=== PATIENT | male | born 1960 | race Caucasian/White ===

== ENCOUNTER 2018-03-12 02:07 | Emergency (ER) | payer MEDICARE, OTHER ==
[~2018-03-12 02:07] MED LIST changes: -ATOR40TA24 PO; -CARV25TA78 PO; -CLOP75TA PO; -FAMO-67 PO; -FLUO-177 PO; -GABA-549 PO; -HYDR25TA66 PO; -LISI-362 PO; -LOR5/325 PO; -NITR0.4T3 SL; -SPIR25TA80 PO; -TAMS0.4C70 PO; -TRAZ100T31 PO
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
[2018-03-12] MEDS ORDERED: ASPIRIN 81 MG CHEW PO ONE (02:15)
[2018-03-12] MEDS ORDERED: ONDANSETRON 4 MG/2 ML VIAL IVP ONE (02:15)
[2018-03-12] MEDS ORDERED: NITROGLYCERIN OINT 1 GM PKT TP ONE (02:25)
[2018-03-12 02:26] LABS: PLATELET COUNT, AUTOMATED 233 K/uL (150-450)
--- NOTE | 2018-03-12 02:35 | RADIOLOGY IMAGING REPORT ---
FACILITY: [facility] [place] PATIENT NAME: Caesar Ortega : 1960 MR: [id number] V: [id number] EXAM DATE: ORDERING PHYSICIAN: NANDINI ZAMORA TECHNOLOGIST: Location: [facility] Patient: Caesar Ortega : 1960 Visit/Account:[id number] Date of Sevice: 03/12/2018 CHEST SINGLE AP 03/12/2018 02:25 hours. HISTORY: Acute chest pain. History of myocardial infarction. COMPARISON: 07/28/2009 and 12/31/2008. TECHNIQUE: Portable AP view of the chest. FINDINGS: Tubes/lines/hardware: There are external chest leads. Pulmonary/pleura: Lungs are clear. There is no pneumothorax or pleural effusion. Cardiomediastinal: Cardiac and mediastinal silhouettes are within normal limits. Bones/soft tissues: No acute osseous abnormality. The visible abdomen is normal. IMPRESSION: 1. No acute cardiopulmonary process. Report Dictated By: Belen Rivera at 03/12/2018 2:30 AM Report E-Signed By: Belen Rivera at 03/12/2018 2:31 AM WSN:[id number]
[2018-03-12] MEDS ORDERED: GABA-549 PO (02:37)
[2018-03-12] MEDS ORDERED: CARV25TA78 PO (02:37)
[2018-03-12] MEDS ORDERED: TRAZ100T31 PO (02:37)
[2018-03-12] MEDS ORDERED: ATOR40TA24 PO (02:37)
[2018-03-12] MEDS ORDERED: NITR0.4T3 SL (02:37)
[2018-03-12] MEDS ORDERED: FLUO-177 PO (02:37)
[2018-03-12] MEDS ORDERED: TAMS0.4C70 PO (02:37)
[2018-03-12] MEDS ORDERED: LISI-362 PO (02:37)
[2018-03-12] MEDS ORDERED: HYDR25TA66 PO (02:37)
[2018-03-12] MEDS ORDERED: SPIR25TA80 PO (02:37)
[2018-03-12] MEDS ORDERED: CLOP75TA PO (02:37)
[2018-03-12 02:42] LABS: INR 1.02
[2018-03-12] MEDS ORDERED: MORPHINE 4 MG/ML SDV IVP ONE (02:55)
[2018-03-12] MEDS ORDERED: FAMO-67 PO (03:02)
--- NOTE | 2018-03-12 03:44 | EKG ---
FACILITY: [facility] PATIENT NAME: DONALDO DIALLO : [id number] MR: [id number] V: [id number] EXAM DATE: ORDERING PHYSICIAN: NANDINI ZAMORA TECHNOLOGIST: LESTER Test Reason : CP Blood Pressure : / mmHG Vent. Rate : 075 BPM Atrial Rate : 075 BPM P-R Int : 174 ms QRS Dur : 100 ms QT Int : 416 ms P-R-T Axes : 047 067 066 degrees QTc Int : 464 ms Normal sinus rhythm Possible Inferior infarct , age undetermined Abnormal ECG No previous ECGs available Confirmed by GANESH MCCLOUD ([id number]) on 03/12/2018 6:28:06 AM Referred By: Confirmed By:GANESH MCCLOUD
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
[2018-03-12] MEDS ORDERED: MORPHINE 2 MG/ML SYR IVP ONE (04:20)
[2018-03-12] MEDS ORDERED: KETOROLAC 30 MG/ML VIAL IVP ONE (04:20)
--- NOTE | 2018-03-12 04:55 | EKG ---
FACILITY: [facility] PATIENT NAME: DONALDO DIALLO : [id number] MR: [id number] V: [id number] EXAM DATE: ORDERING PHYSICIAN: NANDINI ZAMORA TECHNOLOGIST: LESTER Miguel Reason : REPEAT EKG Blood Pressure : / mmHG Vent. Rate : 069 BPM Atrial Rate : 069 BPM P-R Int : 186 ms QRS Dur : 102 ms QT Int : 422 ms P-R-T Axes : 035 091 056 degrees QTc Int : 452 ms Normal sinus rhythm Rightward axis Inferior infarct (cited on or before 12-MAR-2018) Cannot rule out Anterior infarct , age undetermined Abnormal ECG When compared with ECG of 12-MAR-2018 02:15, No significant change was found Confirmed by GANESH MCCLOUD ([id number]) on 03/12/2018 6:28:17 AM Referred By: Confirmed By:GANESH MCCLOUD
[2018-03-12 05:30] VITALS: BP 111/60
[2018-03-12] MEDS ORDERED: MAG HYD/AL HYD/SIMETH 30ML UDC PO ONE (05:40)
[2018-03-12] MEDS ORDERED: LIDOCAINE 2% VISC SLN 15ML UDC PO ONE (05:40)
[2018-03-12] MEDS ORDERED: ACET/HYDROC 5/325MG TH ER ONLY 2 TAB/BOTTLE PO ONE (05:40)
[2018-03-12] MEDS ORDERED: PANTOPRAZOLE SOD 40 MG IV VIAL IVP ONE (05:40)
[2018-03-12] MEDS ORDERED: LOR5/325 PO (05:45)
[2018-03-28] MEDS ORDERED: GABA-547 PO ×2 (14:28→14:57)
[2018-03-28] MEDS ORDERED: ASPI-757 PO (14:57)
[2018-03-28] MEDS ORDERED: ALB6.7R INH (14:57)
[2018-03-28] MEDS ORDERED: LEVO175T42 PO (14:57)
[2018-03-28] MEDS ORDERED: SPIR50TA30 PO (14:57)
[2018-03-28] MEDS ORDERED: ATOR-1 PO (14:57)
[2018-03-28] MEDS ORDERED: FLUO40CA67 PO (14:57)
[2018-03-28] MEDS ORDERED: AMLO-125 PO (14:57)
[2018-03-28] MEDS ORDERED: FAMO-67 PO (14:57)
[2018-03-29] MEDS ORDERED: GABA-549 PO (09:06)
[2018-03-29] MEDS ORDERED: LEVO175T42 PO (09:06)
[2018-04-03] MEDS ORDERED: CIPR-214 PO (14:56)
== END 2018-03-12 05:55 | disposition home or self-care (01) ==
LOC: ER 02:18
DX: R07.9 Chest pain, unspecified (principal); M79.662 Pain in left lower leg; I25.10 Atherosclerotic heart disease of native coronary artery without angina pectoris; R06.02 Shortness of breath
CPT/HCPCS: 36415; 71045; 73590; 83880; 84484; 85025; 85379; 85610; 85730; 93005; 96374; 96375; 96376; 99284; A9270; C9113; J1885; J2270; J2405; 82040; 82247; 82310; 82374; 82435; 82565; 82947; 84075; 84132; 84155; 84295; 84450; 84460; 84520

== ENCOUNTER → 2018-03-12 | Outpatient (CLI) | payer MEDICARE ==
[~2018-03-12] MED LIST: ALBU8.5H12 IH; AMLO-98 PO; ASPI-715 PO; ATOR40TA24 PO; AZIT1PAC21 PO; BENA40TA52 PO; CARV25TA78 PO; CEP500 PO; CIT20 PO; CLOP75TA PO; FAM20 PO; FAMO-67 PO; FLUO-177 PO; GABA-549 PO; GEMF600T91 PO; HYDR-2970 PO; HYDR25TA66 PO; LEVO150T72 PO; LISI-362 PO; LOR5 PO; LOR5/325 PO; METO-235 PO; METXL50 PO; METXR500 PO; MULT-820 PO; NITR0.4T3 SL; OXY10 PO; PER PO; PRA20 PO; SPIR25TA80 PO; TAMS0.4C70 PO; TRAZ100T31 PO
== END ==
LOC: AMB 01:44
PROVIDERS: ATTEND Nurse Practitioner
DX: R07.9 Chest pain, unspecified (principal); R20.2 Paresthesia of skin
CPT/HCPCS: A0425; A0427

== ENCOUNTER → 2018-03-28 | Outpatient (CLI) | payer OTHER ==
[~2018-03-28] MED LIST changes: +ALB6.7R INH; +AMLO-125 PO; +ASPI-757 PO; +ATOR-1 PO; +ATOR40TA24 PO; +CARV25TA78 PO; +CLOP75TA PO; +FAMO-67 PO; +FLUO-177 PO; +FLUO40CA67 PO; +GABA-547 PO; +GABA-549 PO; +HYDR25TA66 PO; +LEVO175T42 PO; +LISI-362 PO; +LOR5/325 PO; +NITR0.4T3 SL; +SPIR25TA80 PO; +SPIR50TA30 PO; +TAMS0.4C70 PO; +TRAZ100T31 PO
[2018-03-28 16:03] LABS: PLATELET COUNT, AUTOMATED 215 K/uL (150-450)
== END ==
LOC: LAB 15:18
PROVIDERS: ATTEND Internal Medicine
DX: C67.9 Malignant neoplasm of bladder, unspecified (principal); I25.10 Atherosclerotic heart disease of native coronary artery without angina pectoris; I50.9 Heart failure, unspecified; E11.9 Type 2 diabetes mellitus without complications; E78.5 Hyperlipidemia, unspecified; E03.9 Hypothyroidism, unspecified; G47.33 Obstructive sleep apnea (adult) (pediatric); R06.00 Dyspnea, unspecified
CPT/HCPCS: 36415; 82040; 82247; 82310; 82374; 82435; 82465; 82565; 82947; 83036; 83718; 83880; 84075; 84132; 84153; 84155; 84295; 84439; 84443; 84450; 84460; 84478; 84520; 84550; 85025

== ENCOUNTER → 2018-04-03 | Outpatient (CLI) | payer OTHER ==
[~2018-04-03] MED LIST changes: +CIPR-214 PO
== END ==
LOC: LAB 13:07
PROVIDERS: ATTEND Urology
DX: C67.9 Malignant neoplasm of bladder, unspecified (principal)
CPT/HCPCS: 88108

== ENCOUNTER → 2018-04-04 | Outpatient (CLI) | payer OTHER ==
--- NOTE | 2018-04-04 11:09 | RADIOLOGY IMAGING REPORT ---
FACILITY: PATIENT NAME: Caesar Ortega : 1960 MR: [id number] V: [id number] EXAM DATE: ORDERING PHYSICIAN: CONCEPCION LEGER TECHNOLOGIST: [facility] Patient: Caesar Ortega : 1960 Visit/Account:[id number] Date of Sevice: 04/04/2018 Computed tomograpy abdomen and pelvis with IV contrast Indication: Bladder cancer. Comparison: None available. . Technique: Transaxial computed tomography images were obtained through the abdomen and pelvis follo wing the injection of nonionic iodinated intravenous contrast. Reformatted coronal and sagittal image s were also obtained. One of the following dose optimization techniques was utilized in the performance of this exam: Autom ated exposure control; adjustment of the mA and/or kV according to the patient's size; or use of an i terative reconstruction technique. Specific details can be referenced in the facility's radiology C T exam operational policy. Contrast: 90 ml of Isovue-300 IV contrast. Findings: Lower lung abraham: 4 mm nodule right middle lobe image 3 of 170. Liver: Findings most consistent with a cavernous hemangioma within the liver dome measures 2.9 cm in size. Too small to characterize low-attenuation lesion inferiorly in the right hepatic lobe on image 55 measures 5 mm. This is strictly indeterminate. No biliary dilatation within the liver. Biliary: Gallbladder is normal. Pancreas: Normal appearance. Spleen: Normal appearance. Adrenal glands: Mild thickening of the adrenal glands bilaterally which maintain their adreniform sha pe. There is a small benign myelolipoma within the lateral limb of the left adrenal gland. Kidneys / retroperitoneum: There are extrarenal pelves bilaterally. No stones. No evidence of hydro nephrosis. There is nodularity of the renal contours bilaterally which may reflect persistent lobulation. In the lower pole the left kidney, there is a low-attenuation lesion identified which is round in shape. This measures 1.8 x 1.7 cm in size. This measures 37 Hounsfield units and is not a simple cyst. Certainly this could represent hemorrhagic/proteinaceous cyst. Neoplasm cannot be exc luded. Are there any older studies for comparison? Bowel / peritoneum / mesenteries: Numerous sigmoid colon diverticula are seen. No evidence of divert iculitis. There has been prior appendectomy. No small bowel dilatation. Lymph node assessment: No pathologic adenopathy identified. Pelvic structures: No focal bladder abnormalities seen. Bladder is partly distended with urine. No bladder stone. Prostate appears minimally enlarged. Vessels: Scattered atherosclerotic calcifications seen throughout a nonaneurysmal abdominal aorta and branches. Musculoskeletal / Body wall: Multilevel degenerative disc disease is present most pronounced at L5-S1 . There is a fat-containing left inguinal hernia. IMPRESSION: 1. No acute inflammatory process within the abdomen and pelvis. 2. Indeterminant 4 mm nodule in the right middle lobe. Given history of bladder malignancy, continu ed CT follow-up is recommended. 3. 2 indeterminate liver lesions, one of which is most likely a cavernous hemangioma. The other is too small to characterize. Comparison with old studies is recommended to document stability. If ind icated, future liver MRI could be done for further characterization. 4. Indeterminant low-attenuation lesion involving the lower pole of the left kidney. This is not a simple cyst. Comparison with old studies is recommended. If there are none, this could be further c haracterized with MRI or a three-phase CT scan. 5. Colonic diverticulosis. No evidence of diverticulitis. Report Dictated By: Reza Oglesby at 04/04/2018 10:22 AM Report E-Signed By: Reza Oglesby at 04/04/2018 11:05 AM WSN:[id number]
== END ==
LOC: US 07:01
PROVIDERS: ATTEND Internal Medicine
DX: I25.10 Atherosclerotic heart disease of native coronary artery without angina pectoris (principal); I50.9 Heart failure, unspecified; I51.7 Cardiomegaly
CPT/HCPCS: 74177; 93306

== ENCOUNTER → 2018-04-04 | Outpatient (CLI) | payer OTHER ==
[~2018-04-04] MED LIST changes: +IOPAMIDOL 61% 100 ML INFUS BTL 100 ML ONE
== END ==
LOC: CT 00:43
PROVIDERS: ATTEND Urology
DX: R91.1 Solitary pulmonary nodule (principal); K76.89 Other specified diseases of liver; N28.9 Disorder of kidney and ureter, unspecified; K57.30 Diverticulosis of large intestine without perforation or abscess without bleeding
CPT/HCPCS: 74177; Q9967

== ENCOUNTER → 2018-04-09 | Outpatient (CLI) | payer OTHER ==
[~2018-04-09] MED LIST changes: -IOPAMIDOL 61% 100 ML INFUS BTL 100 ML ONE; +LISI20TA29 PO; +PREG50CA48 PO
== END ==
LOC: RESP 01:12
PROVIDERS: ATTEND Internal Medicine
DX: I50.9 Heart failure, unspecified (principal); I25.10 Atherosclerotic heart disease of native coronary artery without angina pectoris; R06.00 Dyspnea, unspecified; G47.33 Obstructive sleep apnea (adult) (pediatric)
CPT/HCPCS: 94060; 94726; 94729

== ENCOUNTER → 2018-04-11 | Outpatient (CLI) | payer OTHER ==
--- NOTE | 2018-04-12 10:18 | EKG ---
FACILITY: [facility] [place] PATIENT NAME: DONALDO DIALLO : [id number] MR: [id number] V: [id number] EXAM DATE: ORDERING PHYSICIAN: ANGELES PAULSON TECHNOLOGIST: CYNDI Test Reason : PRE-OP Blood Pressure : / mmHG Vent. Rate : 064 BPM Atrial Rate : 064 BPM P-R Int : 172 ms QRS Dur : 106 ms QT Int : 428 ms P-R-T Axes : 000 076 058 degrees QTc Int : 441 ms Normal sinus rhythm Normal ECG When compared with ECG of 12-MAR-2018 04:27, Minimal criteria for Anterior infarct are no longer present T wave inversion no longer evident in Anterior leads Confirmed by Ananda Sauceda ([id number]) on 04/12/2018 6:53:23 PM Referred By: REDD Confirmed By:Ananda Maynard
== END ==
LOC: RESP 14:05
PROVIDERS: ATTEND Internal Medicine
DX: Z02.9 Encounter for administrative examinations, unspecified (principal)

== ENCOUNTER 2018-04-15 01:46 | Day surgery (SDC) | payer MEDICARE, OTHER ==
[~2018-04-15] VITALS: Ht 182.9 cm; Wt 111.1 kg
[~2018-04-15 01:46] MED LIST changes: +LIDOCAINE/SOD BICARB 8.4% SYR ID ONE
[2018-04-15] MEDS ORDERED: LIDOCAINE/SOD BICARB 8.4% SYR ID ONE (07:00)
[2018-04-15 07:27] VITALS: BP 142/86
[2018-04-15] MEDS ORDERED: fentaNYL CITR 100 MCG/2 ML AMP ONE ×2 (07:55→09:54)
[2018-04-15] MEDS ORDERED: PROPOFOL EMUL(*) 10MG/ML 20 ML 20 ML ONE (07:56)
[2018-04-15] MEDS ORDERED: LIDOCAINE 2% IV 100 MG/5ML SYR ONE (07:56)
[2018-04-15] MEDS ORDERED: PROPOFOL EMUL(*) 10MG/ML 20 ML 40 ML ONE (08:10)
[2018-04-15] MEDS ORDERED: NORMOSOL R SOLN(*) 1000 ML BAG 1,000 ML IV PRN (08:15)
[2018-04-15] MEDS ORDERED: MIDAZOLAM 2 MG/2 ML VIAL IVP PRN (08:15)
[2018-04-15] MEDS ORDERED: LEVOFLOXACIN/D5W*500 MG/100 ML 100 ML IVPB ONE (08:15)
[2018-04-15] MEDS ORDERED: ONDANSETRON 4 MG/2 ML VIAL ONE (09:40)
[2018-04-15] MEDS ORDERED: BELLADONNA ALK/OPIUM 60MG SUPP PR ONE (10:10)
--- NOTE | 2018-04-15 10:40 | Urology Discharge Summary ---
Discharge Summary Reason for Hosp/Final Diag: (1) Bladder cancer Status: Chronic Departure Weight (Pounds): 245 Weight (Ounces): 12.8 Condition: Improved Discharge Instructions Home Meds Active Scripts Pregabalin (LYRICA) 50 Mg Capsule, 50 MG PO BID, #60 CAPSULE 3 Refills Prov:ANGELES PAULSON MD 04/11/18 Lisinopril (LISINOPRIL) 20 Mg Tablet, 20 MG PO QDAY, #30 TAB 5 Refills Prov:ANGELES PAULSON MD 04/11/18 Gabapentin (GABAPENTIN) 300 Mg Capsule, 300 MG PO TID PRN for pain, #90 CAPSULE 3 Refills Prov:ANGELES PAULSON MD 03/29/18 Levothyroxine Sodium (LEVOTHYROXINE SODIUM) 175 Mcg Tablet, 175 MCG PO QDAY, #30 TAB 3 Refills Prov:ANGELES PAULSON MD 03/29/18 Reported Medications Hydrocodone Bit/Acetaminophen (HYDROCODON-ACETAMINOPHEN 5-325) 1 Each Tablet, 1 EACH PO Q4H PRN for PAIN, #6 TAB 04/15/18 Famotidine (FAMOTIDINE) 20 Mg Tablet, 20 MG PO BID, TAB 03/28/18 Albuterol Sulfate (PROVENTIL HFA) 6.7 Gm Inh, 2 PUFF INH Q4-6H PRN for SHORTNESS OF BREATH, INH 03/28/18 Spironolactone (ALDACTONE) 50 Mg Tablet, 50 MG PO QDAY 03/28/18 Atorvastatin Calcium (ATORVASTATIN CALCIUM) 80 Mg Tablet, 1 TAB PO QDAY, TAB 03/28/18 Fluoxetine Hcl (FLUOXETINE HCL) 40 Mg Capsule, 40 MG PO QDAY, CAPSULE 03/28/18 Aspirin (ASPIRIN) 325 Mg Tablet, 325 MG PO QDAY, TAB 03/28/18 Amlodipine Besylate (AMLODIPINE BESYLATE) 5 Mg Tablet, 1 TAB PO QDAY, TAB 03/28/18 Tamsulosin Hcl (TAMSULOSIN HCL) 0.4 Mg Cap.er.24h, 0.4 MG PO DAILY, CAP 03/12/18 Hydralazine Hcl (HYDRALAZINE HCL) 25 Mg Tablet, 75 MG PO QID, TAB 03/12/18 Clopidogrel Bisulfate (CLOPIDOGREL) 75 Mg Tablet, 1 TAB PO QDAY, TAB 03/12/18 Carvedilol (CARVEDILOL) 25 Mg Tablet, 25 MG PO BID, #10 TAB 03/12/18 Trazodone Hcl (TRAZODONE HCL) 100 Mg Tablet, 100 MG PO QHS, TAB 03/12/18 Nitroglycerin (NITROGLYCERIN) 0.4 Mg Tab.subl, 0.4 MG SL Q5MIN PRN for chest pain 03/12/18 Metformin Hcl (Metformin Er) 500 Mg Tab.sr.24h, 500 MG PO BID, 0 Refills 09/15/09 Discontinued Reported Medications Lisinopril (LISINOPRIL) 10 Mg Tablet, 10 MG PO QDAY, TAB 03/12/18 Multivitamins (Multivitamin) 1 Tab Tablet, 1 TAB PO, 0 Refills 09/15/09 Diet: Regular Activity: As Tolerated Special Instructions: Empty catheter bag as necessary Please call my office tomorrow to schedule an appointment for Sunday to remove the catheter. Call me for any problems or concerns [phone] Venous Thromboembolism Antithrombotics Is Pt On Any Antithrombotics?: No Problem Qualifiers (1) Bladder cancer: Bladder location: trigone Qualified Codes: C67.0 - Malignant neoplasm of trigone of bladder CONCEPCION LEGER MD Apr 15, 2018 10:40
[2018-04-15] MEDS ORDERED: HYDR-385 PO (11:06)
[2018-04-15 11:15] VITALS: BP 171/89
[2018-04-15 11:28] VITALS: BP 148/78
[2018-04-15 11:31] VITALS: BP 147/89
[2018-04-15] MEDS ORDERED: APAP/HYDROCODONE 325/5 TAB ONE (11:45)
--- NOTE | 2018-04-16 18:57 | OPERATIVE REPORT 1 ---
EVENT DATE: April 15, 2018 SURGEON: Kendrick Kee MD ANESTHESIOLOGIST: Arnol Treadwell MD ANESTHESIA: General. AUDIENCE COORDINATOR: None. PREOPERATIVE DIAGNOSIS Recurrent low-grade bladder cancer. POSTOPERATIVE DIAGNOSIS Recurrent low-grade bladder cancer. PROCEDURE PERFORMED Cystoscopy with bladder biopsy and fulguration. DESCRIPTION OF PROCEDURE The patient was brought to the operating room, and after the adequate induction of general anesthesia, he was placed in the relaxed dorsal lithotomy position. Genitalia were scrubbed, prepped, and draped in the sterile fashion. The bladder examined with the rigid cystoscope. Near the ureteral orifices bilaterally were small papillary-appearing lesions. The remainder of the bladder was normal with no obvious papillary or sessile lesion. These lesions were confluent with the intravesical prostate. Two biopsies were obtained with the cold cup forceps and then fulgurated with the Bugbee cautery. All the suspicious-appearing mucosa was cauterized with the Bugbee, and once accomplished, his bladder was emptied and an 18-English coude tip Fox catheter placed. This was connected to gravity drainage. A B and O suppository was administered, and he was aroused from anesthesia, transported to PACU in stable condition. MANJIT
[2018-04-17] MEDS ORDERED: CIPR-214 PO (15:26)
== END 2018-04-15 11:15 | disposition home or self-care (01) ==
LOC: OR 01:46
PROVIDERS: ATTEND Urology
DX: C67.9 Malignant neoplasm of bladder, unspecified (principal); E11.9 Type 2 diabetes mellitus without complications
CPT/HCPCS: 36416; 52224; 82948; 88305; A9270; J1956; J2001; J2405; J2704; J3010

== ENCOUNTER → 2018-05-10 | Outpatient (CLI) | payer OTHER ==
[~2018-05-10] MED LIST changes: +CIPR-344 PO; +HYDR-385 PO; -LIDOCAINE/SOD BICARB 8.4% SYR ID ONE
== END ==
LOC: LAB 14:30
PROVIDERS: ATTEND Urology
DX: C67.9 Malignant neoplasm of bladder, unspecified (principal)
CPT/HCPCS: 81001; 87088

== ENCOUNTER → 2018-05-14 | Outpatient (CLI) | payer OTHER ==
[~2018-05-14] MED LIST changes: +METF500T4 PO; +ONDA-2 PO; +TAMS0.4C25 PO
[2018-05-14 15:32] LABS: PLATELET COUNT, AUTOMATED 203 K/uL (150-450)
--- NOTE | 2018-05-14 16:42 | RADIOLOGY IMAGING REPORT ---
FACILITY: [facility] - [place] PATIENT NAME: Caesar Ortega : 1960 MR: [id number] V: [id number] EXAM DATE: ORDERING PHYSICIAN: ANGELES PAULSON TECHNOLOGIST: Location: [facility] [place] Patient: Caesar Ortega : 1960 Visit/Account:[id number] Date of Sevice: 05/14/2018 ACUTE ABDOMEN SERIES 3 VIEW Given history: Bladder cancer COMPARISON: CT abdomen pelvis 04/04/2018 FINDINGS: Tubes and Lines: None. Lungs and pleura: Well aerated. No evidence of focal consolidation or pleural effusions. Mediastinum: normal. Cardiac silhouette: normal . Osseous structures: 5 mm sclerotic lesion in the right ilium is also seen in the CT scan. Abdominal bowel gas pattern: Within normal limits with air scattered through large and small bowel. Additional findings: None IMPRESSION: Tiny sclerotic bone lesion right ilium almost certainly represents a benign bone island. No definite radiographic evidence of metastatic disease. Report Dictated By: Koby Burks MD at 05/14/2018 4:34 PM Report E-Signed By: Koby Burks MD at 05/14/2018 4:38 PM WSN:[email or web address]
== END ==
LOC: LAB 15:00
PROVIDERS: ATTEND Internal Medicine
DX: M89.8X8 Other specified disorders of bone, other site (principal); C67.9 Malignant neoplasm of bladder, unspecified; R11.10 Vomiting, unspecified
CPT/HCPCS: 36415; 74022; 81001; 82040; 82150; 82247; 82310; 82374; 82435; 82565; 82947; 83690; 84075; 84132; 84155; 84295; 84450; 84460; 84520; 85025

== ENCOUNTER 2018-06-18 13:18 | Outpatient (RCR) | payer MEDICARE, OTHER ==
[2018-05-22 13:20] VITALS: BP 184/93
[2018-05-22 14:04] VITALS: BP 163/93
[2018-05-28 14:06] VITALS: BP 155/83
[2018-06-04 14:12] VITALS: BP 152/76
[2018-06-11 13:58] VITALS: BP 145/81
[~2018-06-18 13:18] MED LIST changes: +ALBU8.5H IH; +ONDA4TAB97 PO; +[UNRECOGNIZED DRUG - CODE] INTRAVES; +[UNRECOGNIZED DRUG - CODE] IV; +[UNRECOGNIZED DRUG - MIXTURE] INTRAVES ONE; +[UNRECOGNIZED DRUG - MIXTURE] IVPB ONE
[2018-06-18] MEDS ORDERED: [UNRECOGNIZED DRUG - MIXTURE] INTRAVES ONE (14:00)
[2018-06-18 17:08] VITALS: BP 174/82
[2018-06-25 14:24] VITALS: BP 159/82
[2018-06-25] MEDS ORDERED: [UNRECOGNIZED DRUG - MIXTURE] INTRAVES ONE (14:30)
[2018-07-02] MEDS ORDERED: LEVO175T42 PO (15:14)
[2018-07-08] MEDS ORDERED: GABA-549 PO (11:59)
[2018-07-16] MEDS ORDERED: HYDR25TA66 PO (11:07)
[2018-07-19] MEDS ORDERED: HYDR25TA66 PO (09:33)
== END 2018-07-22 14:51 | disposition home or self-care (01) ==
LOC: ONC 13:18
PROVIDERS: ATTEND Urology
DX: Z51.11 Encounter for antineoplastic chemotherapy (principal); C67.9 Malignant neoplasm of bladder, unspecified; F17.210 Nicotine dependence, cigarettes, uncomplicated
CPT/HCPCS: 51701; 51720; J7050; J9201

== ENCOUNTER → 2018-08-29 | Outpatient (CLI) | payer MEDICARE ==
[~2018-08-29] MED LIST changes: +GABA-533 PO; +LEVO150T78 PO; +LISI-374 PO; -[UNRECOGNIZED DRUG - MIXTURE] INTRAVES ONE; -[UNRECOGNIZED DRUG - MIXTURE] IVPB ONE
[2018-08-29 09:13] LABS: PLATELET COUNT, AUTOMATED 202 K/uL (150-450)
== END ==
LOC: LAB 08:57
PROVIDERS: ATTEND Internal Medicine
DX: E78.5 Hyperlipidemia, unspecified (principal); E11.9 Type 2 diabetes mellitus without complications; I25.10 Atherosclerotic heart disease of native coronary artery without angina pectoris; G47.33 Obstructive sleep apnea (adult) (pediatric); E03.9 Hypothyroidism, unspecified
CPT/HCPCS: 36415; 82040; 82247; 82310; 82374; 82435; 82465; 82565; 82947; 83036; 83718; 84075; 84132; 84155; 84295; 84439; 84443; 84450; 84460; 84478; 84520; 85025

== ENCOUNTER → 2018-10-02 | Outpatient (CLI) | payer MEDICARE | LOC: LAB 14:29 | PROVIDERS: ATTEND Urology | DX: C67.9 Malignant neoplasm of bladder, unspecified (principal) | CPT/HCPCS: 88108 ==